=== PATIENT | male | born 1995 | race African-American/Black ===

== ENCOUNTER → 2017-05-29 | Outpatient (CLI) | payer BC ==
[~2017-05-29] VITALS: Ht 180.3 cm; Wt 65.8 kg
[~2017-05-29] MED LIST: FUROSEMIDE 20MG/2ML VIAL IVP NR
== END | disposition home or self-care (01) ==
LOC: NM 09:40
PROVIDERS: ATTEND Urology
DX: N13.1 Hydronephrosis with ureteral stricture, not elsewhere classified (principal); Q62.11 Congenital occlusion of ureteropelvic junction
CPT/HCPCS: 78707; A9562; J1940

== ENCOUNTER → 2018-01-09 | Outpatient (CLI) | payer BC ==
[~2018-01-09] MED LIST changes: -FUROSEMIDE 20MG/2ML VIAL IVP NR; +IOHEXOL-300 100 ML BOTTLE ONE
== END | disposition home or self-care (01) ==
LOC: CT 10:52
PROVIDERS: ATTEND Urology
DX: N13.5 Crossing vessel and stricture of ureter without hydronephrosis (principal)
CPT/HCPCS: 74178; Q9967